=== PATIENT | male | born 1955 | race African-American/Black ===

== ENCOUNTER 2021-05-12 11:15 | Emergency (ER) | payer BC, OTHER ==
[~2021-05-12] VITALS: Ht 182.9 cm; Wt 70.0 kg
[2021-05-12 13:25] LABS: EOSINOPHILS % 1.4 % (0.0-5.0); HEMATOCRIT. 41.2 % (42.0-52.0); HEMOGLOBIN. 13.5 g/dL (14.0-18.0); LYMPHOCYTES % 41.9 % (20.0-50.0); MEAN CORPUSCULAR HEMOGLOBIN 26.9 pg (28.0-32.0); MEAN CORPUSCULAR VOLUME 82.2 fL (80.0-94.0); MEAN PLATELET VOLUME 8.9 fl (7.4-10.4); NEUTROPHILS % 45.7 % (40.0-76.0); PLATELET 195 x1000/uL (130-400); RED BLOOD CELL COUNT 5.01 mill/uL (4.7-6.1); RED CELL DISTRIBUTION WIDTH 13.9 % (11.6-14.6)
[2021-05-12 13:32] LABS: CHLORIDE 110 mEq/L (98-107)
[2021-05-12] MEDS ORDERED: NAPR-681 MT (17:14)
[2021-05-12] MEDS ORDERED: IBUPROFEN 800MG TABLET PO ONE (17:15)
[2021-05-12 17:53] VITALS: BP 128/77
== END 2021-05-12 18:11 | disposition home or self-care (01) ==
LOC: ER 11:15
DX: R07.89 Other chest pain (principal)
CPT/HCPCS: 36415; 71045; 80053; 83880; 84484; 85025; 93005; 99285; Z7610